=== PATIENT | male | born 1980 | race Caucasian/White ===

== ENCOUNTER 2016-08-29 19:25 | Emergency (ER) | payer BC ==
--- NOTE | 2016-08-29 20:20 | ERNOTE ---
Medical Problem HPI - Narrative Date of Service: 08/29/16 - General Chief Complaint: General Assessment Time Seen by Provider: 08/29/16 19:49 - Immun/Allergies/Home Medications Immunizations: IMMUNIZATION HX Immunizations Up to Date Yes History of Influenza Vaccine No Hx Pneumococcal Vaccination No Allergies/Adverse Reactions: Allergies No Known Allergies Allergy (Verified 08/29/16 19:33) Home Medications: HOME MEDICATIONS Doxycycline Monohydrate 100 mg PO BID #20 tablet 08/29/16 [Last Taken Unknown] - History of Present History Narrative: Pt presents to ED with c/o testicular pain bilat and edema. Pt states this has been going on for 2 weeks. Pt states pain is so bad that he can't even sit on the toilet. Pain occurs during movement. Pt states that he took 8 tablets of his child's left over Amoxil and states the pain started on the left side and then after taking Amoxil states that's when the pain spread to the right side. Pt states he has had this in the past and was treated in [place] where he was told he has multiple cysts in his testicles. Date (Duration): 08/15/16 Timing: getting worse - spread from the left side to the right Severity: moderate Modifying Factors - (Worsens): Present: movement Review of Systems - Review of Systems Constitutional: Present: no symptoms reported. Absent: recent illness, fever, chills, diaphoresis, weakness EYE: Present: no symptoms reported, eye pain. Absent: eye discharge, vision changes ENT: Present: no symptoms reported. Absent: ear pain, ear discharge, nose pain , nose congestion, nasal drainage, sore throat, throat swelling Respiratory: Present: no symptoms reported. Absent: shortness of breath, cough , wheezing Cardiology: Present: no symptoms reported. Absent: chest pain, palpitations Gastrointestinal/Abdominal: Present: no symptoms reported. Absent: nausea, vomiting, diarrhea, constipation, abdominal pain Genitourinary: Present: pain - Bilat testicular pain, L testicular pain that moved to the right. , other - testicular swelling. Absent: frequency, dysuria, hematuria Musculoskeletal: Present: no symptoms reported. Absent: back pain, muscle pain Skin: Present: no symptoms reported. Absent: rash Neurological: Present: no symptoms reported. Absent: anxiety, depressed, headache, dizziness/light-headedness, seizure, weakness Endocrine: Present: no symptoms reported. Absent: excessive sweating, flushing , intolerance to heat, intolerance to cold, increased hunger Hematologic/Lymphatic: Present: no symptoms reported. Absent: easy bruising, easy bleeding Psych: Present: no symptoms reported. Absent: anxiety, depressed All Other Systems: All systems neg except as marked - Patient's Past Medical History Patient History - Medical: No pertinent hx Patient History - Cardiac/Respiratory: No pertinent hx Patient History - Cancer: No Hx of Cancer Patient History - Surgical Procedures: No surgical history Patient History - Other: None - Social History Living Situations: home Smoking Status: Never smoker Have you smoked in the past 12 months: No Do you dip or chew tobacco: Yes Alcohol Use: occasionally Drug Use: none - Immunizations Immunizations Up to Date: Yes Hx Pneumococcal Vaccination: No History of Influenza Vaccine: No Physical Exam - Physical Exam General Appearance: Present: wd/wn, alert, no apparent distress. Absent: mild distress, anxious, irritable Eye Exam: Normal inspection: bilateral, PERRL: bilateral, EOMI: bilateral Ears, Nose, Throat: Present: normal ENT inspection, hearing grossly normal, normal pharynx. Absent: nasal congestion, sinus pain/drainage Neck: Present: normal inspection, nontender, supple, full range of motion. Absent: limited range of motion Respiratory: Present: no respiratory distress, normal breath sounds, no accessory muscle use, chest nontender, lungs clear. Absent: decreased breath sounds, crackles, rales, rhonchi, stridor, wheezing, pleural rub Cardiovascular/Chest: Present: regular rate, rhythm, no murmur, normal peripheral pulses. Absent: tachycardia, bradycardia, irregularly irregular Gastrointestinal/Abdominal: Present: normal bowel sounds, nontender, nondistended, soft, no organomegaly. Absent: tenderness, abnormal bowel sounds , distended, guarding Male Genitals Exam: Present: no hernia, epididymal tenderness, testicular tenderness (R), testicular tenderness (L), other - testicular edema. Absent: erythema Back Exam: Present: normal inspection, normal range of motion, no CVA tenderness , no vertebral tenderness. Absent: decreased range of motion, muscle spasm Extremity Exam: Present: normal inspection, non-tender, no edema, normal range of motion. Absent: decreased range of motion, calf tenderness Neurological Exam: Present: alert, oriented, normal mood/affect, no motor/ sensory deficits, mirror painter II-XII nml as tested, normal cerebellar test. Absent: facial droop, motor weakness Skin Exam: Present: normal color, warm/dry. Absent: cyanosis, jaundice, pallor , skin rash Lymphatic Exam: Present: inguinal node (L) ED Progress - Results and Orders Patient's Lab Results:: I have reviewed the patient's lab results. - Vital Signs Patient's Vital Signs:: I have reviewed the patient's vital signs. Vital Signs: Vital Signs 08/29/16 19:31 Temperature 35.7 C L Pulse Rate 72 Respiratory 14 Rate Blood Pressure 136/71 O2 Sat by Pulse 100 Oximetry - CT/Ultrasound CT/Ultrasound Narrative: US with B epididymitis with L epidydimal cyst and mild B hydrocele and mild B varicocele - Progress/Reassessment Chief Complaint: General Assessment Progress:: Unchanged Departure - Departure Clinical Impression: Acute epididymitis, Epididymal cyst, Varicocele Hydrocele Qualifiers: Hydrocele type: unspecified Qualified Code(s): N43.3 - Hydrocele, unspecified Disposition: Home self-care Condition: Good Instructions: Epididymitis Additional Instructions: Please call your urologist in [place] for follow up appointment Referrals: Jean Pierre Gifford MD [Primary Care Provider] - Prescriptions: Doxycycline Monohydrate 100 mg PO BID #20 tablet
[2016-08-29 20:29] LABS: Urine Bilirubin Negative (NEGATIVE); Urine Blood Negative /ul (NEGATIVE); Urine Ketone Negative (NEGATIVE); Urine Nitrite Negative (NEGATIVE); Urine Protein Negative (NEGATIVE); Urine Specific Gravity 1.025 SP.GR. (1.005-1.030); Urine Urobilinogen Normal (NORMAL)
[2016-08-29 20:42] LABS: Urine Appearance Clear; Urine Bacteria None Seen; Urine Color Yellow; Urine RBC None Seen /hpf (0-5); Urine WBC None Seen /hpf (0-5)
[2016-08-29] MEDS ORDERED: DOXYCYCLINE HYCLATE 100 MG TABLET PO ONE (21:42)
[2016-08-29] MEDS ORDERED: AZITHROMYCIN 250 MG TABLET PO ONE (21:42)
[2016-08-29] MEDS ORDERED: AZITHROMYCIN 250 MG TABLET ONE (22:00)
[2016-08-29] MEDS ORDERED: DOXYCYCLINE HYCLATE 100 MG TABLET ONE (22:00)
[2016-08-29] MEDS ORDERED: LIDOCAINE HCL 20 ML VIAL ONE (22:01)
[2016-08-29 22:49] VITALS: BP 115/79
== END 2016-08-29 22:25 | disposition home or self-care (01) ==
LOC: ER 19:25
DX: N45.1 Epididymitis (principal); N50.3 Cyst of epididymis; I86.1 Scrotal varices; N43.3 Hydrocele, unspecified; F17.220 Nicotine dependence, chewing tobacco, uncomplicated